=== PATIENT | female | born 1975 | race Caucasian/White ===

== ENCOUNTER 2020-10-04 15:20 | Emergency (ER) | payer BC ==
[~2020-10-04] VITALS: Ht 165.1 cm; Wt 90.7 kg
[2020-10-04] MEDS ORDERED: SYMBICORT 16010.2 GM IH (15:55)
[2020-10-04] MEDS ORDERED: ELIQUIS5 MG PO (15:55)
[2020-10-04] MEDS ORDERED: LEVALBUTER0.63 MG/3 IH (15:56)
== END 2020-10-04 19:01 | disposition home or self-care (01) ==
LOC: ER 15:20
DX: S92.521A Displaced fracture of middle phalanx of right lesser toe(s), initial encounter for closed fracture (principal); S80.01XA Contusion of right knee, initial encounter; W18.39XA Other fall on same level, initial encounter; Y93.01 Activity, walking, marching and hiking; Y92.828 Other wilderness area as the place of occurrence of the external cause; Y99.8 Other external cause status